=== PATIENT | male | born 1935 | race Two or more races ===

== ENCOUNTER 2016-06-17 22:59 | Inpatient (IN) | payer MEDICARE, MEDICAID ==
[~2016-06-17] VITALS: Ht 170.2 cm; Wt 89.2 kg
[~2016-06-17 22:59] MED LIST: ALPR0.25 PO; ALPR0.254; ASPI325T4 PO; CARI-277 PO; CLOP75TA28; ENAL20TA93 OR; FURO40TA PO; LEVO-28; LOSA25TA8 PO; LOSA50TA6; OMEGCAP2 OR; POTA12PO2 PO; SIMV-13 OR; TRIA25CA PO; TRIA37.577; [UNRECOGNIZED DRUG - OTHER]
[2016-06-18 00:41] LABS: Basophils # (auto) 0 uL; Basophils % (auto) 0.5 % (0.0-2.0); Eosinophils # (auto) 0.3 uL; Eosinophils % (auto) 3.4 % (0.0-7.0); Hematocrit 46.1 % (41.0-53.0); Hemoglobin 14.9 g/dL (13.5-17.5); Lymphocytes # (auto) 1.9 uL; Lymphocytes % (auto) 19.8 % (10.0-50.0); Mean Corpuscular Hemoglobin 30.8 pg (28.0-32.0); Mean Corpuscular Hgb Conc. 32.3 g/dL (32.0-36.0); Mean Corpuscular Volume 95.3 fL (80.0-100.0); Mean Platelet Volume 8.3 fL (7.4-10.4); Monocytes % (auto) 10.5 % (0.0-12.0); Neutrophils # (auto) 6.5 uL; Neutrophils % (auto) 65.8 % (37.0-80.0); Platelet Count (auto) 269 10^3/uL (140-450); Red Cell Distribution Width 14.8 % (11.6-16.0); White Blood Cell 9.7 10^3/uL (4.4-10.8)
[2016-06-18 01:03] LABS: Albumin 3.8 g/dL (3.4-5.0); BUN/Creatinine Ratio 23.2; Calcium 9.7 mg/dL (8.5-10.1); Potassium 3.6 mmol/L (3.5-5.1)
[2016-06-18 01:05] LABS: Bilirubin, Total 0.7 mg/dL (0.2-1.0)
[2016-06-18] MEDS ORDERED: HYDROcodone-ACET 5/325MG TAB PO PRN (11:30)
[2016-06-18] MEDS ORDERED: ACETAMINOPHEN 500 MG TAB PO PRN (11:30)
[2016-06-18] MEDS ORDERED: ONDANSETRON HCL 4 MG/2 ML VIAL IV PRN (11:30)
[2016-06-18] MEDS ORDERED: LORazepam 0.5 MG TAB PO PRN (11:30)
[2016-06-18] MEDS ORDERED: TEMAZEPAM 15 MG CAP PO PRN (11:30)
[2016-06-18] MEDS ORDERED: NITROGLYCERIN 0.4 MG SL TAB SL PRN (11:30)
[2016-06-18] MEDS ORDERED: MORPHINE SULF INJ 2 MG/ML SYRINGE 1ML IV PRN ×2 (11:30)
[2016-06-18] MEDS ORDERED: ASPirin 81 mg TAB PO ONE (11:45)
[2016-06-18] MEDS: SODIUM CHLORIDE 0.9% 1,000 ML IV SCH (12:00)
[2016-06-18] MEDS ORDERED: ENOXAPARIN SOD 40 MG/0.4 ML SYRINGE SC ONE (12:00)
[2016-06-18 12:14] LABS: Temperature: 22.5 C (20.0-25.0)
[2016-06-18 15:01] LABS: Urine RBC None Seen /hpf (0 - 3)
[2016-06-18 15:05] LABS: Urine Bilirubin Negative (Negative); Urine Blood Negative /uL (Negative); Urine Color Yellow (Yellow); Urine Glucose Normal (Normal); Urine Ketone Negative (Negative); Urine Nitrite Negative (Negative); Urine Urobilinogen Normal (Negative)
[2016-06-18 15:29] LABS: Amylase 61 U/L (25-115)
[2016-06-18 16:56] VITALS: BP 140/70
[2016-06-18] MEDS ORDERED: CELE50CA PO (17:08)
[2016-06-18] MEDS ORDERED: ALLO300T2 PO (17:08)
[2016-06-18] MEDS ORDERED: ALBE200T7 PO (17:08)
[2016-06-18] MEDS ORDERED: CELE200C PO (17:08)
[2016-06-18] MEDS ORDERED: PEN400T PO (17:08)
[2016-06-18] MEDS ORDERED: CYAN1TAB14 PO (17:08)
[2016-06-18] MEDS ORDERED: MILK OF MAGNESIA 30ML SUSP PO ONE (17:15)
[2016-06-18 21:31] VITALS: BP 110/70
[2016-06-18] MEDS ORDERED: BISACODYL 10 MG RECT SUPP PR ONE (22:00)
[2016-06-18] MEDS: ATORVASTATIN 20 MG TAB PO SCH (22:22)
[2016-06-19] MEDS: SODIUM CHLORIDE 0.9% 1,000 ML IV SCH ×2 (01:16→14:04)
[2016-06-19 05:01] VITALS: BP 110/54
[2016-06-19 09:00] VITALS: BP 117/72
[2016-06-19] MEDS: ASPirin 81 mg TAB PO SCH (10:28)
[2016-06-19] MEDS: MILK OF MAGNESIA 30ML SUSP PO SCH (10:28)
[2016-06-19] MEDS: ENOXAPARIN SOD 40 MG/0.4 ML SYRINGE SC SCH (10:29)
[2016-06-19 12:31] VITALS: BP 130/51
[2016-06-19 17:06] VITALS: BP 145/77
[2016-06-19 22:00] VITALS: BP 139/76
[2016-06-19] MEDS: ATORVASTATIN 20 MG TAB PO SCH (22:44)
[2016-06-20] MEDS: SODIUM CHLORIDE 0.9% 1,000 ML IV SCH ×3 (00:27→21:54)
[2016-06-20 05:47] VITALS: BP 122/68
[2016-06-20 08:36] VITALS: BP 113/63
[2016-06-20] MEDS: MILK OF MAGNESIA 30ML SUSP PO SCH (09:59)
[2016-06-20] MEDS: ASPirin 81 mg TAB PO SCH (09:59)
[2016-06-20] MEDS: ENOXAPARIN SOD 40 MG/0.4 ML SYRINGE SC SCH (09:59)
[2016-06-20 12:31] VITALS: BP 124/75
[2016-06-20 16:29] VITALS: BP 141/91
[2016-06-20] MEDS: ATORVASTATIN 20 MG TAB PO SCH (21:54)
[2016-06-20 22:00] VITALS: BP 156/83
[2016-06-20 22:46] VITALS: BP 148/77
[2016-06-21 06:01] VITALS: BP 143/78
[2016-06-21 06:49] LABS: B-Type Natriuretic Peptide 129 pg/mL (0-100)
[2016-06-21 06:56] LABS: BUN/Creatinine Ratio 23.4; Calcium 9.3 mg/dL (8.5-10.1); Potassium 3.9 mmol/L (3.5-5.1)
[2016-06-21 09:18] VITALS: BP 156/81
[2016-06-21] MEDS: ASPirin 81 mg TAB PO SCH (10:24)
[2016-06-21] MEDS: ENOXAPARIN SOD 40 MG/0.4 ML SYRINGE SC SCH (10:24)
[2016-06-21] MEDS: SODIUM CHLORIDE 0.9% 1,000 ML IV SCH (10:25)
[2016-06-21] MEDS: MILK OF MAGNESIA 30ML SUSP PO SCH ×2 (10:25→11:09)
[2016-06-21 12:46] VITALS: BP 147/71
[2016-06-21 17:00] VITALS: BP 131/79
[2016-06-21 17:25] LABS: Cholesterol 176 mg/dL (<200); HDL Cholesterol 38 mg/dL (40-59); LDL Cholesterol 123 mg/dL (<100); Triglycerides 180 mg/dL (<150)
[2016-06-21 22:00] VITALS: BP 149/87
[2016-06-22] MEDS: ATORVASTATIN 20 MG TAB PO SCH ×2 (00:25→22:30)
[2016-06-22 05:00] VITALS: BP 134/87
[2016-06-22] MEDS: SODIUM CHLORIDE 0.9% 1,000 ML IV SCH ×2 (05:48→15:23)
[2016-06-22 09:41] VITALS: BP 148/80
[2016-06-22] MEDS: MILK OF MAGNESIA 30ML SUSP PO SCH (10:26)
[2016-06-22] MEDS: ENOXAPARIN SOD 40 MG/0.4 ML SYRINGE SC SCH (10:27)
[2016-06-22] MEDS: ASPirin 81 mg TAB PO SCH (10:27)
[2016-06-22 12:19] VITALS: BP 121/64
[2016-06-22] MEDS ORDERED: RIVAROXABAN 20 MG TAB PO ONE (15:00)
[2016-06-22 17:23] VITALS: BP 121/71
[2016-06-22 22:00] VITALS: BP 151/84
[2016-06-23] MEDS ORDERED: PATIENTS OWN MEDICATION (XARELTO 20 MG) PO SCH (10:00)
[2016-06-23] MEDS ORDERED: RIVAROXABAN 20 MG TAB PO SCH (18:00)
== END 2016-06-22 22:20 | disposition home or self-care (01) | DRG 64 ==
LOC: ER 23:06 → TELE 23:07 → TELE-CENTR 06-18 15:42
PROVIDERS: ADMIT Internal Medicine; ATTEND Internal Medicine Cardiovascular Disease
DX: I63.9 Cerebral infarction, unspecified (principal); N17.0 Acute kidney failure with tubular necrosis; I13.0 Hypertensive heart and chronic kidney disease with heart failure and stage 1 through stage 4 chronic kidney disease, or unspecified chronic kidney disease; G81.94 Hemiplegia, unspecified affecting left nondominant side; R29.6 Repeated falls; I48.91 Unspecified atrial fibrillation; N18.9 Chronic kidney disease, unspecified; I50.9 Heart failure, unspecified; E78.5 Hyperlipidemia, unspecified; W18.30XA Fall on same level, unspecified, initial encounter; H91.90 Unspecified hearing loss, unspecified ear; F41.9 Anxiety disorder, unspecified; K59.01 Slow transit constipation; Z79.82 Long term (current) use of aspirin; Z98.890 Other specified postprocedural states; Z88.0 Allergy status to penicillin; Y93.89 Activity, other specified; Y92.89 Other specified places as the place of occurrence of the external cause; Y99.8 Other external cause status; Z95.0 Presence of cardiac pacemaker
CPT/HCPCS: 36415; 70450; 73070; 73502; 74176; 80048; 80053; 80061; 81001; 82150; 82550; 82607; 82746; 83690; 83880; 84443; 84484; 85025; 85652; 87081; 93005; 93306; 95819; 96372; 97001; 97110; 97116; 97530

== ENCOUNTER → 2016-07-07 | Outpatient (CLI) | payer MEDICARE, MEDICAID ==
[~2016-07-07] MED LIST changes: +ALBE200T7 PO; +ALLO300T2 PO; -ALPR0.25 PO; -ALPR0.254; -ASPI325T4 PO; -CARI-277 PO; +CELE200C PO; +CELE50CA PO; -CLOP75TA28; +CYAN1TAB14 PO; -ENAL20TA93 OR; +IOHEXOL 350 MG/ML 100ML IJ ONE; -LEVO-28; -LOSA50TA6; -OMEGCAP2 OR; +PEN400T PO; -POTA12PO2 PO; -SIMV-13 OR; -TRIA25CA PO; -TRIA37.577; -[UNRECOGNIZED DRUG - OTHER]
[2016-07-07 09:45] VITALS: BP 112/60
[2016-07-07 10:20] VITALS: BP 143/69
== END | disposition home or self-care (01) ==
LOC: Rad HDHVI 08:36
PROVIDERS: ATTEND Internal Medicine Cardiovascular Disease
DX: I25.10 Atherosclerotic heart disease of native coronary artery without angina pectoris (principal); I49.5 Sick sinus syndrome; I48.91 Unspecified atrial fibrillation; R20.0 Anesthesia of skin; M79.662 Pain in left lower leg; K59.01 Slow transit constipation; R53.1 Weakness; Z86.73 Personal history of transient ischemic attack (TIA), and cerebral infarction without residual deficits
CPT/HCPCS: 75635; 93306; G0463; Q9967; 96374